=== PATIENT | male | born 1995 | race African-American/Black ===

== ENCOUNTER 2020-08-10 11:22 | Outpatient (CLI) | payer OTHER ==
[2020-08-10 12:04] VITALS: BP 119/81
--- NOTE | 2020-08-10 12:04 | SLEEP CARE CONSULTATION ---
Information from patient questionnaire entered by Savana Mera. I have reviewed and concur with the information entered by Savana Mera. This document represents the service I personally performed and the decisions made by me, Nikki Rowe ARNP. History of Present Illness Service Date and Time: 08/10/2020 112 Reason for Visit: New patient Chief Complaint: reports: Insomnia, Unrefreshed sleep, Snoring, Excessive daytime sleepiness, Observed pauses in breathing, Fatigue Date of Onset: 2016 Usual bedtime: 4 AM Time it takes to fall asleep: Hours Snores at night: Yes (i think so) Observed to quit breathing while asleep: No Sleeps alone due to snoring: No Number of times waking at night: 1-2 Reasons for waking at night: reports: Snoring, Gasping for air (shortness of breath), Bathroom, Other (nose, dreams). denies: Choking Toss, Turn, or Twitch while sleeping: Yes Recalls having dreams: Yes Usually gets out of bed at: infrequent Feels refreshed in the morning: No Morning headache: Yes (all the time, last about 15 mins, usually lays down) Sleepy or fatigued during the day: Yes Ever fallen asleep while driving: No Takes day naps: Yes (15 minutes to 30 minutes; 2-3 times a week) Dreams during day naps: Yes Prior sleep studies: No Additional HPI information: I had the pleasure of seeing SARANYA PASTOR today regarding the possibility of him having a sleep disorder. His current complaints are insomnia, observed pauses in breathing, unrefreshed sleep, excessive daytime sleepiness and fatigue. He has been told that he snores and has pause in his breathing. 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 He has been having trouble getting to sleep or staying asleep. He has had some rotating shifts from nights to days since being in the [employer]. - Parasomnia Symptoms Ever been unable to move upon waking from sleep: No Walks in sleep: No Talks in sleep: Yes Ever acted out dreams in sleep: No Ever felt weak in the knees when startled or emotional: Yes Bothered by creepy, crawly, restless sensations in legs: No Problems with memory or concentration: Yes (both) Subjective Initial [place] Sleepiness Scale score: 18 (in 2020) Past Medical History Past Medical History: reports: Anxiety, Depression. denies: Hypertension, Diabetes, Arrythmia, Anemia, Mood disorder, GERD Social History The patient's occupation is a Active . Patient is Single and lives in [place]. Have you smoked in the past 12 months: Yes (vaping) Quit date: 3 weeks ago Alcohol use: Yes Alcohol amount and frequency: weekly; 4 times Caffeine use: Yes Caffeine amount and frequency: 4 cups energy drinks/coffee daily Family History Family history of sleep disordered breathing: Yes (grandparents) Family Hx Sleep Apnea: Grandparent: Snoring Allergies and Home Medications Drug allergies reviewed: Yes (NKDA, trazodone made him feel nasal congested, ? allergy) Home medication list reviewed: Yes (no medications) Review of Systems Weight gain over past 5 years: 25-30 Respiratory: reports: shortness of breath Gastrointestinal: reports: vomitting Neurological: reports: headaches, disorientation Psychiatric: reports: anxiety, depression Ear/Nose/Throat: reports: nasal congestion, wisdom teeth removed. denies: tonsillectomy Endocrine: reports: too hot or cold, increased appetite, increased urination Musculoskeletal: reports: neck pain, back pain, muscle pain or cramping Immunologic: reports: sneezing Physical Exam Blood Pressure: 119/81 Cuff size: long Heart Rate: 54 O2 Saturation: 98 Height: 6 ft Weight: 202 lb Body Mass Index: 27.3 BMI Classification: Overweight Neck circumference: 15 (inches) Nostrils: patent to airflow Turbinates: swollen Mouth and throat: narrow oropharynx Soft palate: long Hard palate: normal Uvula visualization: 25% Mallampati Class III Tongue: enlarged in size with teeth forte on lateral edges Tonsils: 2+ Chin and jaw: normal size and position Heart: regular rate and rhythm Lungs: clear bilaterally Impression and Plan 1. Suspected Obstructive Sleep Apnea-Hypopnea Syndrome, as suggested by a history of loud and irregular snoring, observed cessation of breath while asleep, gasping or choking in sleep, morning headache, unrefreshed sleep, cognitive impairment, and excessive daytime sleepiness. I reviewed with the patient that a narrow oropharynx and obesity are common predisposing factors for obstructive sleep apnea-hypopnea syndrome. I recommend proceeding to polysomnography to confirm the diagnosis and to assess severity. If the patient has significant sleep disordered breathing, a manual CPAP titration study will also be performed to find the optimal treatment pressure. I informed the patient of what the sleep studies involve and after some discussion, obtained agreement to proceed. The pathophysiology of obstructive sleep apnea-hypopnea syndrome was discussed with the patient and health risks of cardiovascular and cerebrovascular disease if not treated. AAS brochure for obstructive sleep apnea-hypopnea syndrome given and reviewed. Risks of drowsy driving discussed in detail and patient advised to avoid long distance driving and to crop puller at the first sign of drowsiness. Patient agreed to plan. * Schedule polysomnography +- manual CPAP titration study and return in 1-2 weeks after the study to discuss result and initiate therapy. * Avoid long distance driving or driving when feeling sleepy. * Avoid alcohol, sedative and muscle relaxant around bedtime. * Attempt to lose weight. * Review instructions provided by trained office staff on how to prepare for the sleep study. * Return for follow-up after sleep study completed. Visit Type: In Office Time Spent with Patient (minutes): 32 Provider Statement: I spent 100% of the Face to Face Visit with the patient with greater than 50% spent counseling the patient and coordination of care.
== END 2020-08-10 11:23 | disposition home or self-care (01) ==
LOC: SC 11:22
PROVIDERS: ATTEND Nurse Practitioner Family
DX: R06.83 Snoring (principal); R06.81 Apnea, not elsewhere classified; R51.9 Headache, unspecified; R41.89 Other symptoms and signs involving cognitive functions and awareness; G47.10 Hypersomnia, unspecified; E66.3 Overweight; Z68.27 Body mass index [BMI] 27.0-27.9, adult
CPT/HCPCS: 99203; 99212

== ENCOUNTER 2020-08-14 10:06 | Outpatient (CLI) | payer OTHER | END 2020-08-14 10:07 | disposition home or self-care (01) | LOC: SC 10:06 | PROVIDERS: ATTEND Nurse Practitioner Family | DX: R06.83 Snoring (principal); G47.8 Other sleep disorders; R06.81 Apnea, not elsewhere classified; G47.10 Hypersomnia, unspecified; E66.3 Overweight; Z68.27 Body mass index [BMI] 27.0-27.9, adult | CPT/HCPCS: 95806 ==